=== PATIENT | male | born 1945 | race Caucasian/White ===

== ENCOUNTER 2016-07-25 22:04 | Emergency (ER) | payer OTHER, MEDICARE ==
[~2016-07-25] VITALS: Ht 167.6 cm; Wt 83.5 kg
[2016-07-25 23:05] LABS: ABSOLUTE BASOPHIL COUNT 0.2 /CUMM (0.0-0.2); ABSOLUTE EOSINOPHIL COUNT 0.2 /CUMM (0.0-0.7); ABSOLUTE GRANULOCYTE CT 3.9 /CUMM (1.4-6.5); ABSOLUTE LYMPH COUNT 1.4 /CUMM (1.2-3.4); ABSOLUTE MONOCYTE COUNT 0.6 /CUMM (0.10-0.60); BASOPHIL % 3.2 % (0.0-2.0); EOSINOPHIL % 3.4 % (0-5); GRANULOCYTE % 61.9 % (42.2-75.2); HEMATOCRIT 44.2 % (42-52); MEAN CORPUSCULAR HGB 30.3 PG (27.0-31.0); MEAN CORPUSCULAR HGB CONC 33.4 G/DL (33.0-37.0); MEAN CORPUSCULAR VOLUME 90.7 FL (80.0-94.0); MEAN PLATELET VOLUME 8.6 FL (7.4-10.4); PLATELET COUNT 195 /CUMM (130-400); RED BLOOD CELL CT 4.88 /CUMM (4.70-6.10); WHITE BLOOD CELL COUNT 6.3 /CUMM (4.8-10.8)
--- NOTE | 2016-07-25 23:09 | ED GI/GU/ABDOMINAL COMPLAINT ---
History of Present Illness General Chief Complaint: Abdominal Pain/Flank Pain Stated Complaint: LLQ PAIN X 25MIN Source: patient Exam Limitations: no limitations Vital Signs & Intake/Output Vital Signs & Intake/Output Vital Signs Date Time Temp Pulse Resp B/P Pulse O2 O2 Flow FiO2 Ox Delivery Rate 07/25 2214 97.9 103 18 154/80 100 Room Air ED Intake and Output 07/26 0000 07/25 1200 Intake Total Output Total Balance Patient 184 lb Weight Allergies Coded Allergies: MDX - Bananas (BANANAS) (ANAPHYLAXIS 09/28/12) MDX - [place] ([place]) (ANAPHYLAXIS 09/28/12) Uncoded Allergies: MELONS (09/28/12) SCALLOPSA (09/28/12) Reconcile Medications Oxycodone HCl/Acetaminophen (Percocet 5-325 MG Tablet) 5 MG-325 MG TABLET 1 TAB PO BID PRN PAIN Tamsulosin HCl (Flomax) 0.4 MG CAP.ER.24H 1 CAP PO DAILY PRN KIDNEY STONE Triage Note: PT TO ED FOR SUDDEN ONSET OF LLQ ABD PAIN, DENIES NAUSEA, VOMITING, LNBM THIS AM. Triage Nurses Notes Reviewed? yes Onset: Abrupt Duration: intermittent Timing: recent history Quality/Severity: sharpness, severe, stabbing Location: left flank Radiation: no radiation Activities at Onset: none HPI: Patient is a 70-year-old male with past medical history hyperlipidemia diverticulosis last colonoscopy was May 2014 showing pandiverticulosis and diminutive polyp of the sigmoid colon patient presents emergency room stating with patient states that last night he was woken up from bed with left lower quadrant acute onset of pain this resolved after approximately 10 minutes patient was in his normal state of health today however pain returned this evening 1 hour prior to arrival in which patient did eat dinner Patient's last bowel movement was this morning no blood no melena noted. DENIES ANY nausea vomiting or diarrhea currently. Patient does state that prior to arrival he had significant resolution of his pain (AMBER MATOS,LIBORIO) Past History Travel History Traveled to [place] past 21 day No Medical History Any Pertinent Medical History? see below for history Neurological: NONE EENT: NONE Cardiovascular: "ABNORMAL EKG" HIGH CHOLESTEROL Respiratory: NONE Gastrointestinal: DIVERTICULITIS Renal: KIDNEY STONES Musculoskeletal: CHRONIC KNEE PAIN Psychiatric: NONE Endocrine: NONE Blood Disorders: NONE Cancer(s): BASAL CELL REMOVAL Surgical History Surgical History: non-contributory Psychosocial History What is your primary language Polish Tobacco Use: Never used ETOH Use: occasional use Illicit Drug Use: denies illicit drug use Family History Hx Contributory? No (LIBORIO ALBERTO) Review of Systems Review of Systems Constitutional: Reports: no symptoms. EENTM: Reports: no symptoms. Respiratory: Reports: no symptoms. Cardiovascular: Reports: no symptoms. GI: Reports: see HPI, abdominal pain. Genitourinary: Reports: no symptoms. Musculoskeletal: Reports: no symptoms. Skin: Reports: no symptoms. Neurological/Psychological: Reports: no symptoms. Hematologic/Endocrine: Reports: no symptoms. Immunologic/Allergic: Reports: no symptoms. All Other Systems: Reviewed and Negative (LIBORIO ALBERTO) Physical Exam Physical Exam General Appearance: no apparent distress, obese Gastrointestinal: normal bowel sounds, soft, MILD LEFT FLANK POINT TENDERNESS, NO RIGHT LOWER QUADRANT PAIN NO PERITONEAL SIGNS NO REBOUND TENDERNESS Comments: HEENT: Normal EENT exam, Neck: Supple, no lymphadenopathy, normal range of motion without pain or tenderness Back: Nontender, no CVA tenderness. Cardiovascular: Regular rate and rhythms no murmurs rubs or gallops, normal JVP Respiratory: Chest nontender. No respiratory distress.breath sounds clear to auscultation bilaterally Extremity: No edema, no calf tenderness to palpation, normal and equal pulses. Neuro: Alert oriented x3, motor sensory normal, Skin: No appreciable rash on exposed skin, skin is warm and dry. Psych: Mood and affect is normal, memory and judgment is normal. Core Measures ACS in differential dx? No Severe Sepsis Present: No Septic Shock Present: No (LIBORIO ALBERTO) Progress Differential Diagnosis: AAA, AMI, appendicitis, biliary colic, bowel obstruction , colon cancer, cholecystitis, diverticulitis, epididymitis, esophageal varices, gastritis, hepatitis, hernia, hemorrhoids, ischemic bowel, inflamm bowel dis, orchitis, pancreatitis, prostatitis, peptic ulcer, PUD/GERD, perforated viscous, pyelonephritis, SBO, testicular torsion, ureterolithiasis, urinary retention, urethritis, UTI/pyelo Plan of Care: Orders Procedure Date/time Status LACTIC ACID 07/26 0144 Active URINALYSIS 07/26 0024 Active TROPONIN LEVEL 07/25 2244 Complete PARTIAL THROMBOPLASTIN TIME 07/25 2244 Complete PROTHROMBIN TIME 07/25 2244 Complete LIPASE 07/25 2244 Complete LACTIC ACID 07/26 2243 Complete COMPREHENSIVE METABOLIC PANEL 07/25 2214 Complete CBC WITHOUT DIFFERENTIAL 07/25 2214 Complete EKG 07/25 2214 Active Laboratory Tests 07/26/16 0035: Urine Color Pending, Urine Clarity Pending, Urine pH Pending, Ur Specific [place] Pending, Urine Protein Pending, Urine Ketones Pending, Urine Nitrite Pending, Urine Bilirubin Pending, Urine Urobilinogen Pending, Ur Leukocyte Esterase Pending, Ur Microscopic Pending, Urine Hemoglobin Pending, Urine Glucose Pending 07/25/16 225: Lactic Acid 1.4, Troponin I < 0.01, Lipase 58 07/25/162250: Anion Gap 13, Estimated GFR 60, BUN/Creatinine Ratio 20.8, Glucose 147 H, Calcium 9.6, Total Bilirubin 0.9, AST 27, ALT 39, Alkaline Phosphatase 75, Total Protein 7.5, Albumin 4.3, Globulin 3.2, Albumin/Globulin Ratio 1.3, PT 10.5, INR 1.00, APTT 50 H, CBC w Diff NO MAN DIFF REQ, RBC 4.88, MCV 90.7, MCH 30.3, RDW 13.0, MPV 8.6, Gran % 61.9, Lymphocytes % 22.3, Monocytes % 9.2, Eosinophils % 3.4, Basophils % 3.2 H, Absolute Granulocytes 3.9, Absolute Lymphocytes 1.4, Absolute Monocytes 0.6, Absolute Eosinophils 0.2, Absolute Basophils 0.2, PUBS MCHC 33.4 Patient is resting comfortably in no apparent distress Patient has concerned of left 2 mm ureteral stone Patient was able tolerate by mouth upon discharge Patient does state he has establishment with Dr. Faith and was strongly advised him on a follow-up (AMBER MATOS,LIBORIO) Diagnostic Imaging: Viewed by Me: CT Scan. Radiology Impression: acute abnormality Initial ED EKG: normal p-waves, normal QRS complex, normal sinus rhythm Comments: PATIENT: ORLANDO CHAU PRESENT AGE: 70 PATIENT ACCOUNT NO: [id number] : 43 LOCATION: [facility] ORDERING PHYSICIAN: LIBORIO MATOS SERVICE DATE: 07/25/16 EXAM TYPE: CAT - CT ABD & PELVIS W/O IV CONTRAS EXAMINATION: CT ABDOMEN AND PELVIS WITHOUT CONTRAST CLINICAL INFORMATION: Left lower quadrant pain. COMPARISON: April 2009. TECHNIQUE: Contiguous axial thin section helical images of the abdomen and pelvis were performed without oral or IV contrast. The data set was reformatted in the coronal and sagittal planes and reviewed on an independent workstation. DLP: 616 mGy-cm. FINDINGS: The visualized lung bases are clear. The visualized portions of the heart are unremarkable. The liver is of normal size and diffuse decreased attenuation without focal lesions nor intrahepatic biliary ductal dilation. A normal gallbladder is identified. There is no wall thickening or discernible pericholecystic fluid. The spleen, pancreas, adrenal glands are unremarkable. Both kidneys are of normal size and attenuation. There is a 2 mm nonobstructive calculus within the lower pole the right kidney. There is no right-sided hydronephrosis. Secondary to an obstructive proximal left ureteral calculus measuring approximately 5 mm, there is left grade 2 hydroureteronephrosis. There is mild left perinephric stranding. There is no abdominal free fluid. There is neither mesenteric nor retroperitoneal lymphadenopathy. There is sigmoid diverticulosis without evidence of diverticulitis. Otherwise, unremarkable unopacified loops of small and large bowel are identified. There is no pelvic free fluid. The urinary bladder is unremarkable. There is neither pelvic nor inguinal lymphadenopathy. Prostate gland is enlarged. Bone windows: Neither sclerotic nor lytic bone lesions are identified. IMPRESSION: Left grade 2 hydronephrosis secondary to an obstructive 5 mm proximal left ureteral calculus. Mild left upper extremity. Sigmoid diverticulosis without evidence of diverticulitis. Hepatic steatosis. Nonobstructive right renal calculus. DICTATED BY: JOSE ALFREDO PARISI MD DATE/TIME DICTATED:07/26/167 COATER CARBON PAPER:ABIODUN DATE/TIME TRANSCRIBED:07/26/167 (LIBORIO ALBERTO) Departure Departure Disposition: HOME OR SELF CARE Condition: Stable Clinical Impression Primary Impression: Calculus of left kidney Referrals: ESTRADA IRENE,NELSON Trujillo (PCP/Family) TAYLOR FAITH MD Additional Instructions: As discussed begin [id number] ibuprofen if needed for future occurrence of pain. Begin the prescription of Percocet for breakthrough pain relief, and begin the prescription of Flomax for your kidney stone. Begin the prescription of Zofran if needed for nausea. Tomorrow follow up with Dr. Faith for further evaluation treatment. If symptoms worsen return to the emergency room Prescriptions awaiting a [facility] pharmacy Departure Forms: Customer Survey General Discharge Information Prescriptions: Current Visit Scripts Oxycodone HCl/Acetaminophen (Percocet 5-325 MG Tablet) 1 TAB PO BID PRN PAIN #10 TAB Tamsulosin HCl (Flomax) 1 CAP PO DAILY PRN KIDNEY STONE #20 CAP (LIBORIO ALBERTO) PA/HAND I THERMAL CUTTER Co-Sign Statement Statement: ED Attending supervision documentation- [X] I saw and evaluated the patient. I have also reviewed all the pertinent lab results and diagnostic results. I agree with the findings and the plan of care as documented in the PA's/HAND I THERMAL CUTTER's documentation. [X] I have reviewed the ED Record and agree with the PA's/HAND I THERMAL CUTTER's documentation. [] Additions or exceptions (if any) to the PAs/HAND I THERMAL CUTTER's note and plan are summarized below: [] (MALACHI IRENE,EMILI)
[2016-07-25 23:10] LABS: PT 10.5 SEC (9.4-12.5); PTT 50 SEC (25-37)
--- NOTE | 2016-07-26 00:17 | CT SCAN REPORT ---
EXAMINATION: CT ABDOMEN AND PELVIS WITHOUT CONTRAST CLINICAL INFORMATION: Left lower quadrant pain. COMPARISON: April 2009. TECHNIQUE: Contiguous axial thin section helical images of the abdomen and pelvis were performed without oral or IV contrast. The data set was reformatted in the coronal and sagittal planes and reviewed on an independent workstation. DLP: 616 mGy-cm. FINDINGS: The visualized lung bases are clear. The visualized portions of the heart are unremarkable. The liver is of normal size and diffuse decreased attenuation without focal lesions nor intrahepatic biliary ductal dilation. A normal gallbladder is identified. There is no wall thickening or discernible pericholecystic fluid. The spleen, pancreas, adrenal glands are unremarkable. Both kidneys are of normal size and attenuation. There is a 2 mm nonobstructive calculus within the lower pole the right kidney. There is no right-sided hydronephrosis. Secondary to an obstructive proximal left ureteral calculus measuring approximately 5 mm, there is left grade 2 hydroureteronephrosis. There is mild left perinephric stranding. There is no abdominal free fluid. There is neither mesenteric nor retroperitoneal lymphadenopathy. There is sigmoid diverticulosis without evidence of diverticulitis. Otherwise, unremarkable unopacified loops of small and large bowel are identified. There is no pelvic free fluid. The urinary bladder is unremarkable. There is neither pelvic nor inguinal lymphadenopathy. Prostate gland is enlarged. Bone windows: Neither sclerotic nor lytic bone lesions are identified. IMPRESSION: Left grade 2 hydronephrosis secondary to an obstructive 5 mm proximal left ureteral calculus. Mild left upper extremity. Sigmoid diverticulosis without evidence of diverticulitis. Hepatic steatosis. Nonobstructive right renal calculus.
[2016-07-26] MEDS ORDERED: FLOMAX0.4 M1 PO (00:48)
[2016-07-26] MEDS ORDERED: PERCOCET 5-3251 EACH PO (00:48)
[2016-07-26 01:16] VITALS: BP 137/83
== END 2016-07-26 01:17 ==
LOC: ERH 22:04
PROVIDERS: Emergency Medicine
DX: N20.0 Calculus of kidney (principal)
CPT/HCPCS: 74176; 81001; 93005; 93010